=== PATIENT | female | born 1975 | race Caucasian/White ===

== ENCOUNTER 2016-08-01 16:20 | Outpatient (CLI) | payer BC, OTHER ==
[~2016-08-01] VITALS: Ht 167.6 cm; Wt 83.9 kg
[2016-08-01 16:08] VITALS: BP 126/79
--- OUTSIDE RECORDS SUMMARY | 2016-08-01 16:22 | XMS REPORT ---
Author Author DARCY PEREZ Organization [employer] Address Unknown Phone Unavailable Care Team Providers Care Field Reporter Name Role Phone DARCY PEREZ CP Unavailable Allergies, Adverse Reactions, Alerts Substance Reaction Event Type Penicillin Info Not Available Drug Allergy Problems Problem Type Condition Code Onset Dates Condition Status Problem Need for prophylactic vaccination and inoculation, Influenza V04.81 Active Problem Other malaise and fatigue 780.79 Active Problem Encounter for dental examination Z01.20 Active Assessment Encounter for dental examination Z01.20 Active Medications Medication Code System Code Instructions Start Date End Date Status Dosage NuvaRing [facility] [address]-26 0.12-0.015 mg/24 hr Apr 17, 2012 1 ea by Vaginal route every 4 weeksInsert ring and remove every 21 days Procedures Procedure Coding System Code Date TOPICAL FLUORIDE VARNISH CPT-4 D1206 May 12, 2015 BITEWINGS - FOUR FILMS CPT-4 D0274 May 12, 2015 PERIODIC ORAL EXAMINATION CPT-4 D0120 May 12, 2015 Billing Notes on claim CPT-4 EC109 May 12, 2015 PROPHYLAXIS - ADULT CPT-4 D1110 May 12, 2015 [employer] Employee/Board adjustment CPT-4 [facility] May 12, 2015 Vital Signs Date/Time: May 12, 2015 Blood Pressure Diastolic 71 mmHg Blood Pressure Systolic 110 mmHg Cardiac Monitoring Heart Rate 62 bpm Results No Known Results Summary Purpose [employer] Submission
[2016-08-01] MEDS ORDERED: NS IV 500 ML 500 ML IV ONE (16:45)
[2016-08-01] MEDS: NS IV 1000 ML 1,000 ML IV SCH ×2 (16:55→19:12)
[2016-08-01 17:25] LABS: BASOPHILS % (AUTO) 0 % (0-10); EOSINOPHILS % (AUTO) 0 % (0-10); LYMPHOCYTES # (AUTO) 0.4 X 10^3 (1.0-4.0); LYMPHOCYTES % (AUTO) 4 % (12-44); MEAN CORPUSCULAR HEMOGLOBIN 33 PG (25-34); MEAN CORPUSCULAR HGB CONC 35 G/DL (32-36); MEAN CORPUSCULAR VOLUME 92 FL (80-99); MEAN PLATELET VOLUME 9.2 FL (7.4-10.4); MONOCYTES # (AUTO) 0.4 X 10^3 (0.0-1.0); MONOCYTES % (AUTO) 4 % (0-12); NEUTROPHILS # (AUTO) 9.6 X 10^3 (1.8-7.8); NEUTROPHILS % (AUTO) 92 % (42-75); PLATELET COUNT 243 10^3/uL (130-400); RED BLOOD COUNT 4.58 10^6/uL (4.35-5.85); RED CELL DISTRIBUTION WIDTH 13.6 % (10.0-14.5); WHITE BLOOD COUNT 10.4 10^3/uL (4.3-11.0)
[2016-08-01] MEDS ORDERED: NITROFURANTOIN 100 MG (MACROBID) CAPSULE PO NR (17:30)
[2016-08-01 17:40] LABS: ALANINE AMINOTRANSFERASE 14 U/L (0-55); ALBUMIN 3.3 G/DL (3.2-4.5); ANION GAP 13 MMOL/L (5-14); ASPARTATE AMINO TRANSFERASE 18 U/L (5-34); BILIRUBIN,TOTAL 0.6 MG/DL (0.1-1.0); BLOOD UREA NITROGEN 12 MG/DL (7-18); BUN/CREATININE RATIO 18; CALCIUM 8.2 MG/DL (8.5-10.1); CARBON DIOXIDE 16 MMOL/L (21-32); CHLORIDE 109 MMOL/L (98-107); CREATININE SERUM 0.68 MG/DL (0.60-1.30); GFR ESTIMATED > 60; GLUCOSE 83 MG/DL (70-105); POTASSIUM 3.7 MMOL/L (3.6-5.0); SODIUM 138 MMOL/L (135-145); TOTAL PROTEIN 6.2 G/DL (6.4-8.2)
[2016-08-01 17:50] VITALS: BP 118/74
[2016-08-01 18:12] LABS: LYMPHOCYTES % (MANUAL) 7 %; NEUTROPHILS % (MANUAL) 92 %
[2016-08-01] MEDS: BETAMETHASONE ACE/NA PHOS 6 MG/ML (CELESTONE SOLUSPAN) IM SCH (20:06)
[2016-08-01 20:10] VITALS: BP 126/78
[2016-08-01] MEDS ORDERED: NIFE30TA7 PO (20:21)
[2016-08-01] MEDS ORDERED: PROG100C15 PO (20:21)
[2016-08-01] MEDS ORDERED: HYDR250V7 IM (20:22)
[2016-08-02 00:19] VITALS: BP 102/53
[2016-08-02] MEDS: NS IV 1000 ML 1,000 ML IV SCH (01:51)
--- NOTE | 2016-08-02 07:41 | History & Physical-OB ---
OB - Chief Complaint & HPI Date Date of Admission: Date of Admission: Chief Complaint/History Hx : 3 Hx Para: 2 Expected Date of Delivery: October 25, 2016 Gestational Age in Weeks: 27 Other reason for admission: Patient with history of PTL and currently undergoing uterine contractions is admitted at 27.6 weeks. She reports recovering for gastroenteritis. Feels contractions every 5 min. Admission Nurse Assessment Rev: Yes History of Labs Laboratory Tests 08/01/16 16:50: Alanine Aminotransferase (ALT/SGPT) 14, Albumin 3.3, Alkaline Phosphatase 78, Anion Gap 13, Aspartate Amino Transf (AST/SGOT) 18, BUN/Creatinine Ratio 18, Basophils # (Auto) 0.0, Basophils (%) (Auto) 0, Blood Morphology Comment NORMAL , Blood Urea Nitrogen 12, Calcium Level 8.2L, Carbon Dioxide Level 16L, Chloride Level 109H, Creatinine 0.68, Eosinophils # (Auto) 0.0, Eosinophils (%) (Auto) 0, Estimat Glomerular Filtration Rate > 60, Glucose Level 83, Hematocrit 42, Hemoglobin 14.9, Lymphocytes # (Auto) 0.4L, Lymphocytes % (Manual) 7, Lymphocytes (%) (Auto) 4L, Mean Corpuscular Hemoglobin 33, Mean Corpuscular Hemoglobin Concent 35, Mean Corpuscular Volume 92, Mean Platelet Volume 9.2, Monocytes # (Auto) 0.4, Monocytes % (Manual) 1, Monocytes (%) (Auto) 4, Neutrophils # (Auto) 9.6H, Neutrophils % (Manual) 92, Neutrophils (%) (Auto) 92H , Platelet Count 243, Potassium Level 3.7, Red Blood Count 4.58, Red Cell Distribution Width 13.6, Sodium Level 138, Total Bilirubin 0.6, Total Protein 6.2L, White Blood Count 10.4 Allergies and Home Medications Allergies Coded Allergies: Amoxicillin (Verified Allergy, Unknown, 12/05/06) Penicillins (Verified Allergy, Unknown, PT HAS RECEIVED ANCEF, 08/03/08) Home Medications Hydroxyprogesterone Caproate 250 Mg/1 Ml Vial 250 MG IM WEEK (Reported) Nifedipine 30 Mg Tab.er.24 30 MG PO DAILY (Reported) Progesterone,Micronized 100 Mg Capsule 200 MG PO 3 times weekly (Reported) OB - History Hx of Present Care: Yes Ultrasounds: Normal mid trimester US Obstetrical Complications: Other (history of PTL on 17OHP, and procardia) Medical Complications: None Obstetrical History Hx : 3 Hx Para: 2 Hx Termination: No Hx Total # of Abortions (Spona: 0 Hx Multiple Gestation: No Hx Stillbirth: No Hx Complication: Yes (PROM WITH FIRST BABY. DILATED TO 3CM @ 27 WEEKS GESTATION THIS -BE) Hx Induced Hypertens: No Hx Maternal Gestational Diabet: No Delivery History Hx Dystocia: No Hx Large For Gestational Age I: No Hx Small for Gestational Age I: No Hx Section: No Hx Vaginal Delivery Post C-Sec: No Hx Blood Disorders: No Patient Past Medical History n/a Social History/Family History Recent Infectious Disease Expo: No Immunizations Date of Influenza Vaccine: Mar 01, 2016 OB - Admission Exam Physical Exam Vitals: Vital Signs 08/01/16 17:50 Pulse 79 Resp 20 B/P 118/74 O2 Delivery Room Air Heart: Rhythm Normal Lungs: Clear Abdomen: Gravid Heart Rate: 130's Accelerations: Accelerations Present Decelerations: No Decelerations Short Term Variability: Present Prison Variability: Average (6-25) Contractions on Admission: 6-10 Minutes Apart Intensity: Mild Labs Laboratory Tests Test 08/01/16 16:50 Range/Units Alanine Aminotransferase (ALT/SGPT) 14 0-55 U/L Albumin 3.3 3.2-4.5 G/DL Alkaline Phosphatase 78 40-136 U/L Anion Gap 13 5-14 MMOL/L Aspartate Amino Transf (AST/SGOT) 18 5-34 U/L BUN/Creatinine Ratio 18 Basophils # (Auto) 0.0 0.0-0.1 10^3/uL Basophils (%) (Auto) 0 0-10 % Blood Morphology Comment NORMAL Blood Urea Nitrogen 12 7-18 MG/DL Calcium Level 8.2 L 8.5-10.1 MG/DL Carbon Dioxide Level 16 L 21-32 MMOL/L Chloride Level 109 H 98-107 MMOL/L Creatinine 0.68 0.60-1.30 MG/DL Eosinophils # (Auto) 0.0 0.0-0.3 10^3/uL Eosinophils (%) (Auto) 0 0-10 % Estimat Glomerular Filtration Rate > 60 Glucose Level 83 70-105 MG/DL Hematocrit 42 35-52 % Hemoglobin 14.9 11.5-16.0 G/DL Lymphocytes # (Auto) 0.4 L 1.0-4.0 X 10^3 Lymphocytes % (Manual) 7 % Lymphocytes (%) (Auto) 4 L 12-44 % Mean Corpuscular Hemoglobin 33 25-34 PG Mean Corpuscular Hemoglobin Concent 35 32-36 G/DL Mean Corpuscular Volume 92 80-99 FL Mean Platelet Volume 9.2 7.4-10.4 FL Monocytes # (Auto) 0.4 0.0-1.0 X 10^3 Monocytes % (Manual) 1 % Monocytes (%) (Auto) 4 0-12 % Neutrophils # (Auto) 9.6 H 1.8-7.8 X 10^3 Neutrophils % (Manual) 92 % Neutrophils (%) (Auto) 92 H 42-75 % Platelet Count 243 130-400 10^3/uL Potassium Level 3.7 3.6-5.0 MMOL/L Red Blood Count 4.58 4.35-5.85 10^6/uL Red Cell Distribution Width 13.6 10.0-14.5 % Sodium Level 138 135-145 MMOL/L Total Bilirubin 0.6 0.1-1.0 MG/DL Total Protein 6.2 L 6.4-8.2 G/DL White Blood Count 10.4 4.3-11.0 10^3/uL OB - Assessment/Plan/Diagnosis Assessment Assessment: labor Plan Other Plan BMZ order q 24 hrs Contractions have stopped with IVF hydration Patient to continue procardia and bedrest over the weekend RTC in any concerns of PTL Discharge Diagnosis Diagnosis: 41 yo @ 27.6 Hx of labor and delivery contractions Gastroenteritis BAYRON RAIN DO Aug 02, 2016 7:41 am
[2016-08-02 08:00] VITALS: BP 118/71
[2016-08-02 11:00] VITALS: BP 118/71
[2016-08-02] MEDS: BETAMETHASONE ACE/NA PHOS 6 MG/ML (CELESTONE SOLUSPAN) IM SCH (20:30)
== END 2016-08-02 11:00 | disposition home or self-care (01) ==
LOC: WSo 16:20 → LDRP 16:20 → WSo 08-02 11:00
PROVIDERS: ATTEND Obstetrics & Gynecology
DX: O47.02 False labor before 37 completed weeks of gestation, second trimester (principal); O99.612 Diseases of the digestive system complicating pregnancy, second trimester; K52.9 Noninfective gastroenteritis and colitis, unspecified; O09.522 Supervision of elderly multigravida, second trimester; Z3A.27 27 weeks gestation of pregnancy
CPT/HCPCS: 36415; 80053; 85007; 85027; 96360; 96361; 96372; 99214

== ENCOUNTER 2016-10-14 07:05 | Inpatient (IN) | payer OTHER ==
[~2016-10-14] VITALS: Ht 167.6 cm; Wt 91.2 kg
[2016-10-14] VITALS (37 sets, daily range): BP systolic 104–156; BP diastolic 56–96
[~2016-10-14 07:05] MED LIST: HYDR250V7 IM; NIFE30TA7 PO; PROG100C15 PO
[2016-10-14] MEDS ORDERED: MINERAL OIL CONCENTRATE 99.9% 15 ML UDC TOP PRN (07:30)
[2016-10-14] MEDS ORDERED: CATHETER FLUSH 10 ML SYR IV PRN (07:30)
[2016-10-14] MEDS ORDERED: LIDOCAINE/EPI 1%-1:200,000 (XYLOCAINE) 30 ML VIAL INJ PRN (07:30)
[2016-10-14] MEDS ORDERED: SUFENTA 0.6MCG/ML BUPIVA 0.125 100 ML ONE (07:54)
[2016-10-14 07:55] LABS: BASOPHILS % (AUTO) 0 % (0-10); EOSINOPHILS % (AUTO) 1 % (0-10); LYMPHOCYTES # (AUTO) 1.1 X 10^3 (1.0-4.0); LYMPHOCYTES % (AUTO) 13 % (12-44); MEAN CORPUSCULAR HEMOGLOBIN 32 PG (25-34); MEAN CORPUSCULAR HGB CONC 35 G/DL (32-36); MEAN CORPUSCULAR VOLUME 92 FL (80-99); MEAN PLATELET VOLUME 9.5 FL (7.4-10.4); MONOCYTES # (AUTO) 0.9 X 10^3 (0.0-1.0); MONOCYTES % (AUTO) 10 % (0-12); NEUTROPHILS # (AUTO) 6.5 X 10^3 (1.8-7.8); NEUTROPHILS % (AUTO) 76 % (42-75); PLATELET COUNT 273 10^3/uL (130-400); RED BLOOD COUNT 4.02 10^6/uL (4.35-5.85); RED CELL DISTRIBUTION WIDTH 13.9 % (10.0-14.5); WHITE BLOOD COUNT 8.5 10^3/uL (4.3-11.0)
[2016-10-14] MEDS: D5 LR IV SOLUTION 1,000 ML IV SCH (08:27)
[2016-10-14] MEDS ORDERED: LACTATED RINGERS 1,000 ML IV SCH (09:10)
[2016-10-14] MEDS ORDERED: NALOXONE 0.4 MG/ML 1 ML (NARCAN) VIAL IV PRN ×2 (09:15)
[2016-10-14] MEDS ORDERED: METOCLOPRAMIDE INJ 10 MG/2 ML (REGLAN) IV PRN (09:15)
[2016-10-14] MEDS ORDERED: diphenhydrAMINE 50 MG/ML INJ (BENADRYL) IV PRN (09:15)
[2016-10-14] MEDS ORDERED: EPIDURAL (SUFENTA 0.6MCG/ML BUPIVA 0.125%) 100 ML BAG EPI SCH (09:15)
[2016-10-14] MEDS ORDERED: ONDANSETRON 4 MG/2 ML (SDV) Z0FRAN IV PRN (09:15)
[2016-10-14] MEDS ORDERED: OXYTOCIN/NORMAL SALINE 500 ML IV ONE (10:06)
[2016-10-14] MEDS ORDERED: OXYTOCIN/NORMAL SALINE 500 ML IV SCH (12:20)
--- NOTE | 2016-10-14 12:29 | OB Labor & Delivery Record ---
Vag Delivery Note Vag Delivery Note Date of Delivery: 10/14/16 Preoperative Diagnosis: Lenore Stout is a 41 /Para 4 /3 ,Gestational Age 38 3/7 weeks, AMA, gest hypertension, advanced cervical dilation (7 cm on admission), Postoperative Diagnosis: Same Surgeon: FRACISCO MYERS Anesthesia: epidural Delivery Type: vaginal Findings: [] Viable female , apgars 8/9, weight 7# Lacerations: Intact placenta with 3 vessel cord. Cord appeared to have some sort of thrombosis, though at the insertion appeared to just be edematous. Nuchal cord x 1 reduced. No body cord or shoulder dystocia Estimated Blood Loss: 200 ml Complications: None Condition: Stable Description of Procedure: The patient is a 41 /Para 4 /3 ,Gestational Age 38 3/7 weeks, AMA, gest hypertension, advanced cervical dilation (7 cm on admission) who presented for induction of labor, though she was 7 cm dilated on admission. She was admitted and informed consent was obtained. Her labor course was remarkable for Arom at 8 cm, epidural and resultant variable decelerations. She progressed to complete dilatation and began to push. She was then set up for delivery. The infant's head was delivered atraumatically in the OP position. The shoulders and remainder of the infant's body were then delivered without difficulty. Upon delivery, the head was held below the level of the perineum and the mouth and nares were bulb suctioned. The cord was doubly clamped and cut and the was handed off to the pediatric staff. An intact placenta with 3-vessel cord delivered via Akil and there was found to be minimal bleeding.~ Vigorous fundal massage was performed and the fundus was found to be firm. IV oxytocin was given. Examination of the vagina and perineum revealed a 1st laceration repaired in the usual fashion with 3-0 Vicryl suture. Following the repair, sponge, instrument and needle counts were correct. Mom and baby were both in stable condition in the labor suite. Vitals - Labs Labs Laboratory Tests 10/14/16 07:30: White Blood Count 8.5, Red Blood Count 4.02L, Hemoglobin 12.7, Hematocrit 37, Mean Corpuscular Volume 92, Mean Corpuscular Hemoglobin 32, Mean Corpuscular Hemoglobin Concent 35, Red Cell Distribution Width 13.9, Platelet Count 273, Mean Platelet Volume 9.5, Neutrophils (%) (Auto) 76H, Lymphocytes (%) (Auto) 13 , Monocytes (%) (Auto) 10, Eosinophils (%) (Auto) 1, Basophils (%) (Auto) 0, Neutrophils # (Auto) 6.5, Lymphocytes # (Auto) 1.1, Monocytes # (Auto) 0.9, Eosinophils # (Auto) 0.0, Basophils # (Auto) 0.0 FRACISCO MYERS DO October 14, 2016 12:29
[2016-10-14] MEDS ORDERED: TETANUS,DIPTH,PERTUSS P/F (BOOSTRIX) 0.5 ML VIAL IM ONE (12:30)
[2016-10-14] MEDS ORDERED: HYDROcodone/APAP 5 MG/325 MG (LORTAB) TAB PO PRN (12:30)
[2016-10-14] MEDS ORDERED: WITCH HAZEL(TUCKS) 40 EA JAR TOP PRN (12:30)
[2016-10-14] MEDS ORDERED: BENZOCAINE/MENTHOL (DERMOPLAST) 56 ML CAN TP PRN (12:30)
[2016-10-14] MEDS ORDERED: MEASLES,MUMPS,RUBELLA 1 EA INJ SQ ONE (12:30)
[2016-10-14] MEDS ORDERED: DIBUCAINE (NUPERCAINAL) 1% OINT 30 GM TOP PRN (12:30)
[2016-10-14] MEDS ORDERED: CATHETER FLUSH 10 ML SYR IV SCH (14:00)
[2016-10-14] MEDS: IBUPROFEN 600 MG (MOTRIN) TAB PO SCH ×2 (14:44→20:21)
[2016-10-14] MEDS: DOCUSATE SODIUM 100 MG (COLACE) CAP PO SCH (20:20)
[2016-10-14] MEDS ORDERED: PREN1TAB86 PO (20:22)
[2016-10-14] MEDS ORDERED: VALA10004 PO (20:22)
[2016-10-15] MEDS: IBUPROFEN 600 MG (MOTRIN) TAB PO SCH ×2 (02:30→08:56)
[2016-10-15 04:00] VITALS: BP 123/81
[2016-10-15 05:49] LABS: BASOPHILS % (AUTO) 0 % (0-10); EOSINOPHILS # (AUTO) 0.1 10^3/uL (0.0-0.3); EOSINOPHILS % (AUTO) 1 % (0-10); LYMPHOCYTES # (AUTO) 1.7 X 10^3 (1.0-4.0); LYMPHOCYTES % (AUTO) 15 % (12-44); MEAN CORPUSCULAR HEMOGLOBIN 32 PG (25-34); MEAN CORPUSCULAR HGB CONC 34 G/DL (32-36); MEAN CORPUSCULAR VOLUME 94 FL (80-99); MEAN PLATELET VOLUME 9.4 FL (7.4-10.4); MONOCYTES # (AUTO) 1.2 X 10^3 (0.0-1.0); MONOCYTES % (AUTO) 11 % (0-12); NEUTROPHILS # (AUTO) 8.1 X 10^3 (1.8-7.8); NEUTROPHILS % (AUTO) 72 % (42-75); PLATELET COUNT 246 10^3/uL (130-400); RED BLOOD COUNT 3.75 10^6/uL (4.35-5.85); WHITE BLOOD COUNT 11.2 10^3/uL (4.3-11.0)
[2016-10-15] MEDS ORDERED: PRENATAL VITAMIN 1 EA TAB PO SCH (07:00)
[2016-10-15] MEDS: DOCUSATE SODIUM 100 MG (COLACE) CAP PO SCH (08:56)
[2016-10-15] MEDS: D5 LR IV SOLUTION 1,000 ML IV SCH ×3 (08:58→09:57)
[2016-10-15] MEDS ORDERED: FERROUS SULF 325 MG (IRON) TAB PO SCH (09:00)
[2016-10-15 09:38] VITALS: BP 136/77
--- NOTE | 2016-10-15 09:57 | Postpartum Progress Note ---
Note Note Day #1 Subjective: Patient is without complaints. Ambulating, voiding. Tolerating a regular diet without nausea or vomiting. Normal lochia. Pain is well controlled with oral pain medications. Breast feeding. Objective: Laboratory Tests Test 10/15/16 05:22 Range/Units White Blood Count 11.2 H 4.3-11.0 10^3/uL Red Blood Count 3.75 L 4.35-5.85 10^6/uL Hemoglobin 11.9 11.5-16.0 G/DL Hematocrit 35 35-52 % Mean Corpuscular Volume 94 80-99 FL Mean Corpuscular Hemoglobin 32 25-34 PG Mean Corpuscular Hemoglobin Concent 34 32-36 G/DL Red Cell Distribution Width 14.0 10.0-14.5 % Platelet Count 246 130-400 10^3/uL Mean Platelet Volume 9.4 7.4-10.4 FL Neutrophils (%) (Auto) 72 42-75 % Lymphocytes (%) (Auto) 15 12-44 % Monocytes (%) (Auto) 11 0-12 % Eosinophils (%) (Auto) 1 0-10 % Basophils (%) (Auto) 0 0-10 % Neutrophils # (Auto) 8.1 H 1.8-7.8 X 10^3 Lymphocytes # (Auto) 1.7 1.0-4.0 X 10^3 Monocytes # (Auto) 1.2 H 0.0-1.0 X 10^3 Eosinophils # (Auto) 0.1 0.0-0.3 10^3/uL Basophils # (Auto) 0.0 0.0-0.1 10^3/uL Vital Signs 10/15/16 09:38 Temp 98.0 Pulse 78 Resp 16 B/P (MAP) 136/77 Pulse Ox 96 O2 Delivery Room Air Physical Exam: General - Alert and oriented, no apparent distress Abdomen - Soft, appropriately tender to palpation, non-distended, fundus firm at umbilicus Extremities - no edema, negative Bryan's bilaterally Assessment: 1. post- day # a, status post spontaneous vaginal delivery. Recovering well, hemodynamically stable Plan: Routine care. Encourage breast feeding. Encourage ambulation. Ferrous sulfate supplementation. Plan for discharge later today Vitals - Labs Vital Signs - I&O Vital Signs Date Time Temp Pulse Resp B/P (MAP) Pulse Ox O2 Delivery O2 Flow Rate FiO2 10/15/16 09:38 98.0 78 16 136/77 96 Room Air 10/15/16 04:00 97.6 78 17 123/81 98 Room Air 10/14/16 20:00 97.9 73 20 135/83 97 Room Air 10/14/16 15:30 97.6 78 16 123/74 96 Room Air 10/14/16 14:21 97.9 69 18 119/79 98 Room Air 10/14/16 14:04 97.9 78 18 124/74 Room Air 10/14/16 13:18 70 18 142/90 Room Air 10/14/16 13:02 69 18 131/81 Room Air 10/14/16 12:47 71 18 140/80 Room Air 10/14/16 12:32 99.1 71 18 133/66 Room Air 10/14/16 12:20 82 18 137/60 99 Room Air 10/14/16 12:05 76 18 144/66 99 Room Air 10/14/16 11:50 80 18 156/83 99 Room Air 10/14/16 11:35 70 18 128/87 98 Room Air 10/14/16 11:20 71 18 120/80 97 Room Air 10/14/16 11:05 71 18 117/80 98 Room Air 10/14/16 10:50 71 18 121/78 97 Room Air 10/14/16 10:35 70 18 115/80 98 Room Air 10/14/16 10:20 71 18 116/73 96 Room Air 10/14/16 10:05 75 18 119/79 97 Room Air I & O 10/15/16 07:00 Intake Total 1000 ml Balance 1000 ml Labs Laboratory Tests 10/15/16 05:22: White Blood Count 11.2H, Red Blood Count 3.75L, Hemoglobin 11.9, Hematocrit 35, Mean Corpuscular Volume 94, Mean Corpuscular Hemoglobin 32, Mean Corpuscular Hemoglobin Concent 34, Red Cell Distribution Width 14.0, Platelet Count 246, Mean Platelet Volume 9.4, Neutrophils (%) (Auto) 72, Lymphocytes (%) (Auto) 15, Monocytes (%) (Auto) 11, Eosinophils (%) (Auto) 1, Basophils (%) (Auto) 0, Neutrophils # (Auto) 8.1H, Lymphocytes # (Auto) 1.7, Monocytes # (Auto) 1.2H, Eosinophils # (Auto) 0.1, Basophils # (Auto) 0.0 FRACISCO MYERS DO October 15, 2016 09:57
[2016-10-15] MEDS ORDERED: IBUP-1773 PO (10:10)
--- NOTE | 2016-10-15 10:12 | Discharge Inst-Women's Service ---
Discharge Inst-Women's Serv Depart Medication/Instructions New, Converted or Re-Newed RX: Call to Patients Pharmacy Final Diagnosis history of delivery advanced cervical dilation advanced maternal age gestational hypertension Consults/Follow Up Additional Follow Up: Yes (6 weeks) Activity Activity: Activity as Tolerated Driving Instructions: You May Drive NO SMOKING: NO SMOKING Nothing Inside Vagina: No Douching, No [place], No Tampons Diet Discharge Diet: No Restrictions Symptoms to Report to : Swelling Increased, Bleeding Excessive, Fever Over 101 Degrees F, Vaginal Bleeding Increase, Cramps in Feet or Legs, Vaginal Discharge Foul For Any Problems or Questions: Contact Your Physician FRACISCO MYERS DO October 15, 2016 10:11
--- NOTE | 2016-10-15 13:05 | Anesthesia-Regional Post-Op ---
Regional Patient Condition Mental Status: Alert, Oriented x3 Circulation: Same as Pre-Op Headache: Absent Sensation: Full Recovery Motor Block: Absent Post Op Complications Complications None Follow Up Care/Instructions Patient Instructions None needed. Anesthesia/Patient Condition Patient is doing well, no complaints, stable vital signs, no apparent adverse anesthesia problems. No complications reported per nursing. JEANA MOISE CRNA October 15, 2016 13:04
== END 2016-10-15 15:05 | disposition home or self-care (01) | DRG 775 ==
LOC: LDRP 07:05
PROVIDERS: ADMIT Obstetrics & Gynecology; ATTEND Obstetrics & Gynecology
PROC: 0HQ9XZZ Repair Perineum Skin, External Approach (ICD-10-PCS; principal; 2016-10-14)
PROC: 10E0XZZ Delivery of Products of Conception, External Approach (ICD-10-PCS; 2016-10-14)
PROC: 3E033VJ Introduction of Other Hormone into Peripheral Vein, Percutaneous Approach (ICD-10-PCS; 2016-10-14)
DX: O13.4 Gestational [pregnancy-induced] hypertension without significant proteinuria, complicating childbirth (principal); O70.0 First degree perineal laceration during delivery; O69.81X0 Labor and delivery complicated by cord around neck, without compression, not applicable or unspecified; Z3A.38 38 weeks gestation of pregnancy; Z37.0 Single live birth
CPT/HCPCS: 36415; 85025; 86850; 86900; 86901

== ENCOUNTER → 2020-01-11 | Outpatient (CLI) | payer OTHER ==
[~2020-01-11] MED LIST changes: +IBUP-1773 PO; +PREN1TAB86 PO; +VALA10004 PO
== END ==
LOC: LABNPT 09:03
PROVIDERS: ATTEND Emergency Medicine
DX: Z20.828 Contact with and (suspected) exposure to other viral communicable diseases (principal)
CPT/HCPCS: 87635